=== PATIENT | female | born 1965 | race American Indian/Alaskan Native ===

== ENCOUNTER 2021-08-22 01:07 | Emergency (ER) | payer SELFPAY ==
--- NOTE | 2021-08-22 02:54 | Emergency Department Report ---
ED General Adult HPI - General Chief complaint: Psych Stated complaint: HTN/PSYCHOTIC Source: EMS Mode of arrival: Stretcher Limitations: No Limitations - History of Present Illness Initial comments: Patient is a 55 yo F with PMH of HTN, schizophrenia. Patient is unable to give a ny history. Patient's is available by phone and provides some history. She is currently is supposed to take aripiprazole 10 mg once a day at bedtime. She sees a pyschiatrist but unable to tell me their name. Patient stays on her own, talks to her daily. noted a change in the way she has been talking for a few weeks. came home on yesterday, patient was la ughing and talking to herself, this is unlike her usual. Patient is currently not prescribed any blood pressure medications. - Related Data Previous Rx's Medication Instructions Recorded Last Taken Type ARIPiprazole [Abilify] 10 mg PO DAILY #30 tab 08/23/21 Unknown Rx Doxepin [SINEquan] 10 mg PO QHS #30 capsule 08/23/21 Unknown Rx Fluconazole [Diflucan TAB] 200 mg PO QDAY #1 tablet 08/23/21 Unknown Rx Nitrofurantoin [place]/M-Cryst 100 mg PO Q12HR #14 capsule 08/23/21 Unknown Rx [Macrobid CAP] Allergies Allergy/AdvReac Type Severity Reaction Status Date / Time Unable to Assess Allergy Unverified 08/22/21 04:56 ED Review of Systems ROS: Stated complaint: HTN/PSYCHOTIC Other details as noted in HPI Comment: Unobtainable due to pts medical conditions ED Past Medical Hx - Past Medical History Hx Psychiatric Treatment: Yes - Medications Home Medications: Home Medications Medication Instructions Recorded Confirmed Last Taken Type ARIPiprazole [Abilify] 10 mg PO DAILY #30 tab 08/23/21 Unknown Rx Doxepin [SINEquan] 10 mg PO QHS #30 capsule 08/23/21 Unknown Rx Fluconazole [Diflucan TAB] 200 mg PO QDAY #1 tablet 08/23/21 Unknown Rx Nitrofurantoin [place]/M-Cryst 100 mg PO Q12HR #14 capsule 08/23/21 Unknown Rx [Macrobid CAP] ED Physical Exam - General Limitations: No Limitations General appearance: alert, in no apparent distress - Head Head exam: Present: atraumatic, normocephalic - Eye Eye exam: Present: normal appearance - ENT ENT exam: Present: mucous membranes moist - Neck Neck exam: Present: normal inspection - Respiratory Respiratory exam: Present: normal lung sounds bilaterally. Absent: respiratory distress - Cardiovascular Cardiovascular Exam: Present: tachycardia - GI/Abdominal GI/Abdominal exam: Present: soft. Absent: distended, tenderness - Rectal Rectal exam: Present: deferred - Extremities Exam Extremities exam: Present: normal inspection - Back Exam Back exam: Present: normal inspection - Neurological Exam Neurological exam: Present: alert, altered (oriented to self and time; disoriented to place, situation) - Psychiatric Psychiatric exam: Present: flat affect. Absent: homicidal ideation, suicidal i deation - Skin Skin exam: Present: warm, dry, intact ED Course Vital Signs 08/22/21 08/22/21 08/22/21 01:08 01:30 01:45 Temperature 98.4 F Pulse Rate 104 H 93 H Respiratory 18 18 18 Rate Blood Pressure 146/93 142/91 Blood Pressure 180/120 [Right] O2 Sat by Pulse 98 98 100 Oximetry 08/22/21 08/22/21 08/22/21 02:01 02:15 03:01 Temperature Pulse Rate 90 95 H 93 H Respiratory 20 18 20 Rate Blood Pressure 128/91 134/90 143/89 Blood Pressure [Right] O2 Sat by Pulse 100 100 99 Oximetry 08/22/21 08/22/21 08/22/21 03:15 03:45 04:01 Temperature Pulse Rate 92 H 98 H 105 H Respiratory 18 22 18 Rate Blood Pressure 119/84 137/95 137/95 Blood Pressure [Right] O2 Sat by Pulse 100 100 99 Oximetry 08/22/21 08/22/21 08/22/21 04:45 05:01 05:15 Temperature Pulse Rate 94 H 93 H 85 Respiratory 18 18 Rate Blood Pressure 133/105 132/96 135/77 Blood Pressure [Right] O2 Sat by Pulse 100 Oximetry 08/22/21 08/22/21 08/22/21 05:31 12:33 20:14 Temperature 98.6 F 98.3 F Pulse Rate 89 96 H 94 H Respiratory 22 16 18 Rate Blood Pressure 139/96 Blood Pressure 115/69 95/58 [Right] O2 Sat by Pulse 100 98 Oximetry 08/23/21 12:20 Temperature 98.7 F Pulse Rate 80 Respiratory 16 Rate Blood Pressure Blood Pressure 110/72 [Right] O2 Sat by Pulse 100 Oximetry - Reevaluation(s) Reevaluation #1: 08/22/21 05:28 On reassessment patient is in normal sinus rhythm at a rate of 91. Her blood pressure is 127/91. Patient is calm cooperative and her labs and imaging have not revealed any obvious abnormality that could be secondary to hypertensive urgency or emergency. Patient's blood pressure and heart rate have improved without medical intervention. Given this I do not think that patient has hypertensive urgency or emergency I think patient's altered mental status is secondary to her psychiatric illness. Given this I have medically clear patient and patient is awaiting mental health consultation. ED Medical Decision Making - Lab Data Result diagrams: 08/22/21 02:45 08/22/21 02:45 - Medical Decision Making This is a 55-year-old female with past medical history significant for schizophrenia. Patient also possibly has history of hypertension. Patient unable to give history but history obtained from . She has been acting abnormally for the past couple of days. Plan for evaluation for elevated blood pressures with CT head without contrast for intracranial bleeding, chest x-ray, EKG, urinalysis, troponin. Plan for psychiatric evaluation with urine drug screen, ethanol level, mental health consultation. Pending results of labs and imaging may medically clear patient may need inpatient psychiatric care. Critical care attestation.: If time is entered above; I have spent that time in minutes in the direct care of this critically ill patient, excluding procedure time. ED Disposition Clinical Impression: Schizophrenia, UTI (urinary tract infection) Disposition: HOME / SELF CARE / HOMELESS Is pt being admited?: No Does the pt Need Aspirin: No Condition: Stable Additional Instructions: Professional and Agency Contacts To help [facility](22/04) [place] Crisis Line: Suicide Prevention Line: Crisis Text Line: Text START to 106666 Emergency: 911 Outpatient COMMUNITY Behavioral Health Resources: RON: [facility] [address] [place], [place] [address] RAUDEL: [facility] [place] [address] [place] [address] [facility]ED[facility]: [facility] - [address] [place] [address] Saturday thru Saturday - 8am - 5pm WINSTON: Leandra [facility] Address: [address], [place] [address] YOLY: [facility] Address: [address] [place], [place] [address]Saturday thru Saturday- 7am-2pm [facility] Address: [address] [place], [place] Saturday thru Saturday: 8:30AM-5PM Prescriptions: Doxepin [SINEquan] 10 mg PO QHS #30 capsule ARIPiprazole [Abilify] 10 mg PO DAILY #30 tab Fluconazole [Diflucan TAB] 200 mg PO QDAY #1 tablet Nitrofurantoin [place]/M-Cryst [Macrobid CAP] 100 mg PO Q12HR #14 capsule Referrals: PRIMARY CARE, [Primary Care Provider] - 3-5 Days
--- NOTE | 2021-08-22 03:19 | XRay Report ---
XR chest 1V ap INDICATION / CLINICAL INFORMATION: hypertension; tachycardia. COMPARISON: None available. FINDINGS: SUPPORT DEVICES: None. HEART /PULMONARY VASCULATURE: No significant abnormality. LUNGS / PLEURA: No significant pulmonary or pleural abnormality. No pneumothorax. ADDITIONAL FINDINGS: No significant additional findings. IMPRESSION: 1. No acute findings. Signer Name: Elie Encinas MD Signed: 08/22/2021 3:15 AM Workstation Name: [email or web address]
[2021-08-22 03:26] LABS: Basophils # (Auto) 0.1 K/mm3 (0.0-0.1); Basophils % (Auto) 0.9 % (0.0-1.8); Eosinophils % (Auto) 0.3 % (0.0-4.3); Hematocrit 35.7 % (30.3-42.9); Hemoglobin 12.1 gm/dl (10.1-14.3); Lymphocytes # (Auto) 1.4 K/mm3 (1.2-5.4); Lymphocytes % (Auto) 19.5 % (13.4-35.0); Mean Corpuscular HGB Conc 34 % (30-34); Mean Corpuscular Volume 92 fl (79-97); Monocytes # (Auto) 0.7 K/mm3 (0.0-0.8); Monocytes % (Auto) 10.6 % (0.0-7.3); Platelet Count 258 K/mm3 (140-440); Red Blood Count 3.88 M/mm3 (3.65-5.03); Red Cell Distribution Width 14.4 % (13.2-15.2)
[2021-08-22 03:41] LABS: Blood Urea Nitrogen 12 mg/dL (7-17); Calcium 9.2 mg/dL (8.4-10.2); Hemolysis Index 4
[2021-08-22 03:44] LABS: BUN/Creatinine Ratio 17
--- NOTE | 2021-08-22 04:43 | Cat Scan Report ---
CT HEAD WITHOUT CONTRAST INDICATION / CLINICAL INFORMATION: Altered Mental Status. TECHNIQUE: All CT scans at this location are performed using CT dose reduction for ALARA by means of automated exposure control. COMPARISON: None available. FINDINGS: BRAIN PARENCHYMA: No acute intracranial hemorrhage. No evidence of recent infarct. No mass effect or midline shift. VENTRICULAR SYSTEM/EXTRA-AXIAL SPACES: Ventricles are normal for age. No extra-axial fluid collection . ORBITS: Normal as visualized. SKELETAL SYSTEM/SOFT TISSUES: Normal bones and soft tissues. PARANASAL SINUSES/MASTOID AIR CELLS: No significant abnormality. ADDITIONAL FINDINGS: None. IMPRESSION: 1. No acute intracranial abnormality. Signer Name: Elie Encinas MD Signed: 08/22/2021 4:38 AM Workstation Name: [id number]
--- NOTE | 2021-08-22 11:12 | Consultation ---
History of Present Illness - Reason for Consult Consult date: 08/22/21 Reason for consult: psychosis - History of Present Psychiatric Illness The patient was seen today. She is a 55y/o female patient with a history of schizophrenia who was brought in by her for psychosis. During the evaluation, the patient doesn't seem fully with it. She is responding to inter nal stimuli. She is acting sort of bizarre. She is moving her head back and forth, then stare blankly at times. She doesn't start talking right off. She says "I don't have to talk to nobody." She, at times, laughs out loud. She says "I don't know how I got here." The patient then says her family made her come because they says she was "acting crazy." The patient then says "but I'm not crazy." She says "I'm saved." When asked about hallucinations, she whispers "God, I talk to God." She can't tell me a lot about her history. She could not remember her doctors name or the medication she takes, although it is documented she takes Abilify. The patient denies SI/HI. The patient says she is , but only sees her on weekends. She denies illicit drug use, alcohol or nicotine. She says she is employed with the [employer]. PAST PSYCHIATRIC HISTORY: Diagnoses: schizophrenia Suicide attempts or Self-harm behavior: Denies Prior psychiatric hospitalizations: Denies Substance Abuse history: Denies Previous psychiatric medications tried: could not recall Outpatient treatment: Yes PAST MEDICAL HISTORY: None reported or document Family Psychiatric History: None reported or documented SOCIAL HISTORY Marital Status: Living Arrangements: alone Employment Status: Employed Access to guns/weapons: Denies Education: History of Abuse: Denies Legal History: Denies REVIEW OF SYSTEMS Constitutional: Negative for weight loss ENT: Negative for stridor Respiratory: Negative for cough or hemoptysis All other systems reviewed and are negative MENTAL STATUS EXAMINATION General Appearance and Behavior: Age appropriate, good hygiene, wearing appropriate clothes. calm, cooperative, bizarre Cooperation: cooperative Psychomotor Behavior: Psychomotor normal Mood: Affect and affective range: congruent with stated mood, staring blankly at times Thought Process: circumstantial Thought Content: hallucinations, responding to internal stimuli Speech: Normal tone and pace Suicidal Ideation: Denies Homicidal Ideation: Denies Hallucinations: Auditory Delusions: none elicited Impulse Control: impaired Insight and Judgment: Poor Memory: limited Attention: Attentive Orientation: alert and oriented Assessment and Plan (1) Schizophrenia Treatment Plan 1013 Abilify 10mg po daily Doxepin 10m gpo qhs Sitter: per primary Medical: per primary Disposition: Recommend acute psychiatric inpatient treatment Will follow. Thanks. Case staffed with Dr. Chapa Medications and Allergies Allergies Allergy/AdvReac Type Severity Reaction Status Date / Time Unable to Assess Allergy Unverified 08/22/21 04:56 Mental Status Exam - Vital signs Last Vital Signs Temp 98.4 F 08/22/21 01:08 Pulse 89 08/22/21 05:31 Resp 22 08/22/21 05:31 BP 139/96 08/22/21 05:31 Pulse Ox 100 08/22/21 04:45 Results Result Diagrams: 08/22/21 02:45 08/22/21 02:45 Abnormal lab results 08/22/21 08/22/21 08/22/21 Range/Units 02:45 02:45 02:45 [place] % (Auto) 10.6 H (0.0-7.3) % Glucose 107 H (65-100) mg/dL Salicylates < 0.3 L (2.8-20.0) mg/dL Acetaminophen (10.0-30.0) ug/mL 08/22/21 Range/Units 02:45 [place] % (Auto) (0.0-7.3) % Glucose (65-100) mg/dL Salicylates (2.8-20.0) mg/dL Acetaminophen 5.0 L (10.0-30.0) ug/mL All other labs normal.
--- NOTE | 2021-08-22 11:22 | Event Note ---
Date: 08/22/21 S: No overnight events. O: Vital signs stable. Patient calm and cooperative. A: Schizophrenia P: Continue 1013. Awaiting inpatient psychiatric placement.
[2021-08-22] MEDS: ARIPiprazole 10 MG TAB PO SCH (11:49)
[2021-08-22 13:05] LABS: Bacteria,Urine 1+ /HPF (Negative); Bilirubin,Urine NEG (Negative); Blood,Urine SM (Negative); Color,Urine Yellow (Yellow); Mucus,Urine FEW /HPF; Protein,Urine <15 mg/dL mg/dL (Negative); Urobilinogen,Urine < 2.0 mg/dL (<2.0)
[2021-08-22 13:10] LABS: Amphetamine Screen,Urine Negative; Benzodiazepines Screen,Urine Negative; Cannabinoid Screen,Urine Negative; Cocaine Screen,Urine Negative; Methadone Screen,Urine Negative; Opiate Screen,Urine Negative
[2021-08-22] MEDS ORDERED: hydrOXYzine PAMOATE 25 MG CAP PO ONE (18:09)
[2021-08-22] MEDS ORDERED: ACETAMINOPHEN 500 MG TAB PO ONE (18:09)
[2021-08-22] MEDS ORDERED: DOXEPIN 10 MG CAP PO SCH (22:00)
--- NOTE | 2021-08-23 09:58 | Progress Note ---
Subjective - Reason for Consult Consult date: 08/23/21 Reason for consult: psychosis - Chief Complaint Chief complaint: The patient was seen today. She is much more with it today. The patient is lucid and conversational. She is calm, cooperative and pleasant. She tells me that yesterday she didn't feel right. She says "I'm not sure what happened. I went to work, and then felt off." The patient says "I was hallucinating." She then says "I feel good now. I slept good. I took the medications, I feel like myself." She says "I felt like I hadn't slept in a couple of days, but I feel much better." The patient denies SI/HI or hallucinations of any kind. She says her comes to check on her. She says he didn't think things were right with her. The patient says "and something wasn't right cause I didn't feel right. But now I feel good." REVIEW OF SYSTEMS Constitutional: Negative for weight loss ENT: Negative for stridor Respiratory: Negative for cough or hemoptysis All other systems reviewed and are negative MENTAL STATUS EXAMINATION General Appearance and Behavior: Age appropriate, good hygiene, wearing appropriate clothes. calm, cooperative, pleasant and polite Cooperation: cooperative Psychomotor Behavior: Psychomotor normal Mood: good Affect and affective range: congruent with stated mood, euthymic Thought Process: goal directed Thought Content: None Speech: Normal tone and pace Suicidal Ideation: Denies Homicidal Ideation: Denies Hallucinations: Denies Delusions: none elicited Impulse Control: Limited Insight and Judgment: Limited Memory: limited Attention: Attentive Orientation: alert and oriented Assessment and Plan (1) Schizophrenia Treatment Plan d/c 1013 Abilify 10mg po daily Doxepin 10m gpo qhs Sitter: per primary Medical: per primary Disposition: Do not recommend acute psychiatric inpatient treatment. The patient understands that if any SI/HI or fear of endangerment are to arise she is to seek immediate assistance. Tent Worker to further discuss safety plan, and give all necessary outpatient resources The patient to follow up in 7 to 14 days upon discharge Will sign off. Thanks. Case staffed with Dr. Chapa Mental Status Exam - Vital signs Last Vital Signs Temp 98.3 F 08/22/21 20:14 Pulse 94 H 08/22/21 20:14 Resp 18 08/22/21 20:14 BP 95/58 08/22/21 20:14 Pulse Ox 98 08/22/21 20:14
[2021-08-23] MEDS: ARIPiprazole 10 MG TAB PO SCH (10:07)
[2021-08-23 12:20] VITALS: BP 110/72
--- NOTE | 2021-08-23 14:40 | Electrocardiograph Report ---
[facility] Test Date: 2021-08-22 Test Time: 04:41:53 Pat Name: MATHEW COHEN Department: ED Room: Gender: F Chief Administrative Officer: DALE : 1965 Requested By: MICHAEL HAYWOOD Order Number: [id number] Reading MD: Alverto Dillon Measurements Intervals [place] Rate: 102 P: 60 W[place]: 156 QRS: 83 QRSD: 62 T: -20 QT: 379 QTc: 494 Interpretive Statements Sinus tachycardia Probable LVH with secondary repol abnrm T wave inversions, consider anterior ischemia No previous ECG available for comparison Electronically Signed On 08-23-2021 14:39:53 EST by Alverto Dillon
== END 2021-08-23 12:26 | disposition home or self-care (01) ==
LOC: ED 01:07
DX: F20.9 Schizophrenia, unspecified (principal); N39.0 Urinary tract infection, site not specified; Z20.822 Contact with and (suspected) exposure to COVID-19
CPT/HCPCS: 36415; 70450; 71045; 80048; 80307; 81001; 84484; 85025; 87086; 93005; 99285; U0003; 80320; G0480